=== PATIENT | female | born 1980 | race African-American/Black ===

== ENCOUNTER 2023-10-24 02:46 | Emergency (ER) | payer MEDICAID ==
[~2023-10-24] VITALS: Ht 147.3 cm; Wt 60.9 kg
[2023-10-24 03:03] VITALS: BP 157/111; PULSE 106; RESP 20; O2SAT 98
== END 2023-10-24 07:44 | disposition left against medical advice (07) ==
LOC: ER 02:46
DX: M79.605 Pain in left leg (principal); M79.604 Pain in right leg; Z53.21 Procedure and treatment not carried out due to patient leaving prior to being seen by health care provider

== ENCOUNTER 2023-10-25 02:43 | Emergency (ER) | payer MEDICAID ==
[~2023-10-25] VITALS: Ht 147.3 cm; Wt 61.4 kg
[2023-10-25] MEDS: LORazepam 0.5 MG TAB PO ONE (03:05)
[2023-10-25] MEDS: HYDROcodone-ACET 10/325MG TAB PO ONE (05:26)
[2023-10-25 05:57] VITALS: BP 182/100; PULSE 100; RESP 16; TEMP 97.8; O2SAT 99
== END 2023-10-25 06:00 | disposition home or self-care (01) ==
LOC: EDBD 02:43 → ER 02:43
DX: F41.9 Anxiety disorder, unspecified (principal); M79.7 Fibromyalgia; I10 Essential (primary) hypertension